=== PATIENT | male | born 1940 | race Caucasian/White ===

== ENCOUNTER 2017-11-20 10:00 | Inpatient (IN) | payer OTHER, MEDICARE ==
[~2017-11-20] VITALS: Ht 172.7 cm; Wt 67.5 kg
[~2017-11-20 10:00] MED LIST: ALLO300T2 PO; ASPI-183 PO; ATOR80TA45 PO; BUPR100T4 PO; CALC1TAB87 PO; CYAN1TAB24 PO; FINA5TAB2 PO; FLUT50SP EACH NARE; LISI40TA PO; MULTTAB67 PO; POTA595T PO; SUCR1TAB PO; VERA120T3 PO; VITA2000 PO
[2017-11-20] MEDS ORDERED: ACETAMINOPHEN 1000 MG/100 ML 100 ML IV ONE (10:21)
[2017-11-20] MEDS ORDERED: GENTAMICIN SULFATE 80 MG/2 ML VIAL ONE (10:28)
[2017-11-20] MEDS ORDERED: VANCOMYCIN 1000 MG/NS 250 ML (for <70 kg) IV SCH ×2 (10:45)
[2017-11-20] MEDS ORDERED: LACTATED RINGER'S 1000 ML IV PRN (10:45)
[2017-11-20] MEDS ORDERED: METOPROLOL TARTRATE 25 MG TAB PO PRN (10:45)
[2017-11-20] MEDS ORDERED: POVIDONE IODINE 5% (ANTISEPSIS KIT) 4 APPLICATIONS EACH NARE PRN (10:45)
[2017-11-20] MEDS ORDERED: CHLORHEXIDINE GLUCONATE 2 % 1 PACK (2 CLOTHS) TOPICAL PRN (10:45)
[2017-11-20] MEDS ORDERED: SODIUM CHLORID 0.9% 500 ML IV PRN (10:45)
[2017-11-20] MEDS ORDERED: CHLORHEXIDINE GLUCONATE 4% SOLN 120 ML BTL TOPICAL SCH (10:45)
[2017-11-20] MEDS ORDERED: LISI40TA PO (11:14)
[2017-11-20] MEDS ORDERED: LISI-515 PO (11:14)
[2017-11-20] MEDS ORDERED: VANCOMYCIN 1 GM/200 ML INJ 200 ML IV ONE (11:39)
[2017-11-20] MEDS ORDERED: ceFAZolin 2 GM PREMIX 50 ML ONE (11:45)
[2017-11-20 11:46] VITALS: PULSE 79
[2017-11-20] MEDS ORDERED: MIDAZOLAM HCL 5 MG/5 ML VIAL ONE ×2 (11:48→12:25)
[2017-11-20] MEDS ORDERED: BUPIVACAINE LIPOSOME PF 1.3% 20 ML VIAL ONE (11:57)
[2017-11-20] MEDS ORDERED: NEOSTIGMINE 5 MG/5 ML SYRINGE IV PUSH ONE (12:00)
[2017-11-20] MEDS ORDERED: ePHEDrine/NS 25 MG/5 ML SYRINGE IV ONE (12:00)
[2017-11-20] MEDS ORDERED: DEXAMETHASONE SOD PHOS 4 MG/ML VIAL IV ONE (12:00)
[2017-11-20] MEDS ORDERED: ROCURONIUM INJ 50 MG/5 ML SYRINGE IV PUSH ONE (12:00)
[2017-11-20] MEDS ORDERED: GLYCOPYRROLATE 1 MG/5 ML SYRINGE IV PUSH ONE (12:00)
[2017-11-20] MEDS ORDERED: ROPIVACAINE PERI-ARTICULAR INJECTION. P-ARTICULR SCH ×5 (12:00)
[2017-11-20] MEDS ORDERED: LIDOCAINE HCL 1% PF 5 ML SYRINGE OTHER ONE (12:00)
[2017-11-20] MEDS ORDERED: LACTATED RINGER'S 1000 ML INJ 1,000 ML IV ONE (12:00)
[2017-11-20] MEDS ORDERED: PHENYLEPH/NS 1000 MCG/10 ML SYR IV ONE (12:00)
[2017-11-20] MEDS ORDERED: PROPOFOL 200 MG/20 ML AMP IV ONE (12:00)
[2017-11-20] MEDS ORDERED: ONDANSETRON HCL 4 MG/2 ML VIAL IV ONE (12:00)
[2017-11-20] MEDS ORDERED: SUGAMMADEX SODIUM 200 MG/2 ML VIAL IV PUSH ONE (12:29)
[2017-11-20] MEDS ORDERED: HYDR-3288 PO (15:07)
[2017-11-20] MEDS ORDERED: DO NOT ADM ANY ANTICOAGULANT DRUGS PRN (15:08)
[2017-11-20] MEDS ORDERED: MIDAZOLAM HCL 2 MG/2 ML VIAL ONE (15:09)
--- NOTE | 2017-11-20 15:10 | HHI.FF ---
Face to Face Verification Diagnosis: (1) Failed total knee arthroplasty Physical Therapy Gait training, Transfer training, bed to chair Knee: Total knee, Protocol: Left, Full weight bearing Right LE Weight Bearing: WB as tolerated Left LE Weight Bearing: WB as tolerated Nursing RN: 3 days/week x 2 weeks Nursing: Dressing changes (clean incision with alcohol and apply dry, sterile dressing ) Additional Instructions Aspirin 325 mg daily for dvt prop I have seen patient Ady Hidalgo on 11/20/17. My clinical findings support the need for the requested home health care services because: Deconditioned w/ increased weakness I certify that my clinical findings support that this patient is homebound because: Post-op weakness Unsteady gait/balance Red Mcduffie MD November 20, 2017 15:10
[2017-11-20] MEDS ORDERED: BEDSIDE COMMODE1 MI1 (15:11)
[2017-11-20] MEDS ORDERED: WALKER WHEELS/F1 MIS (15:11)
[2017-11-20] MEDS ORDERED: ALUMINUM/MAGNESIUM/SIMETH 30 ML CUP PO PRN (15:15)
[2017-11-20] MEDS ORDERED: ACETAMINOPHEN/HYDROcodone 325 MG/7.5 MG TAB PO PRN (15:15)
[2017-11-20] MEDS ORDERED: Post-op Orders (for Pharmacy) XX ONE (15:15)
[2017-11-20] MEDS ORDERED: ZOLPIDEM TARTRATE 5 MG TAB PO PRN (15:15)
[2017-11-20] MEDS ORDERED: MORPHINE SULFATE 8 MG/ML INJ IV PUSH PRN (15:15)
[2017-11-20] MEDS: LACTATED RINGER'S 1000 ML INJ 1,000 ML IV SCH ×2 (15:26→22:16)
--- NOTE | 2017-11-20 15:36 | MP ---
cc: Red Mcduffie MD, Patricia J MD DATE OF OPERATION: 11/20/2017 PREOPERATIVE DIAGNOSES: 1. Left knee painful medial unicondylar arthroplasty, failed tibial component. 2. Osteoarthritis. POSTOPERATIVE DIAGNOSIS: 1. Left knee painful medial unicondylar arthroplasty, failed tibial component. 2. Osteoarthritis. PROCEDURES PERFORMED: Left revisional total knee arthroplasty. SURGEON: Jill Mcduffie MD COMPLICATIONS: Mercedes Hartley PA-C. TOURNIQUET TIME: 73 minutes at 250 mmHg. ANESTHESIA: General, regional adductor canal block, intraarticular block. ESTIMATED BLOOD LOSS: Less than 25 mL. COMPLICATIONS: None. PLAN OF ACTIVITY: As per orders. NOTE: My public relations assistant, Mercedes Hartley PA-C, was present for the entire surgical case. She was medically necessary for the entire case because of the complexity of the case and to facilitate the performance of the procedure. The [employer] at the back table was not of the skill set in this case to manipulate the instruments, e.g. multiple different soft tissue retractors, removal of unicondylar arthroplasty system, trial implants and permanent implants, including bone cement. DESCRIPTION OF PROCEDURE: The patient was brought into the operating room, had satisfactory anesthesia by the Department of Anesthesia. Left lower extremity was prepped and draped in the usual sterile manner. The extremity was exsanguinated by elevation and tourniquet inflated 250 mmHg. Anterior medial exposure to the knee was made. Paramedian capsulotomy was performed. The remaining portion of the medial and lateral meniscus were removed. The remaining portion of the lateral meniscus was removed. The anterior cruciate ligament was removed. Posterior cruciate ligament was preserved. Prepatellar fat pad was surgically excised. The patient was found to have a failed tibial component. The patient did have what appeared to be loosening of the component. Using the [place] revisional total knee arthroplasty system, flexible osteotomes were used to dissect between the bone and the bone cement and the prosthesis on the femoral component and also removal of the tibial component. Using the [employer] total knee arthroplasty system, IM guide was used for the distal femur, a 7-degree valgus cut to accept a 67.5 mm femoral component. Extramedullary guide was used for the tibia to accept a 75-mm tibial component. Appropriate balancing of the knee was performed, both medially and laterally. A trial implant, 10 mm insert was found to be stable and satisfactory, excellent balance in both flexion and extension. The undersurface of the patella was removed to accept a 31 mm patellar prosthesis. All trial components were removed and preparation for cementing was made. The knee was irrigated with copious amounts of sterile saline antibiotic solution. The knee was injected with 100 mL of local anesthesia provided by the Department of Pharmacy. First 2 packages of [place] bone cement was used. First, the tibial component was cemented which was a 75 mm tibial component, followed by the femoral component, which was a 67.5 mm femoral component and a 31 mm, three-pronged patellar prosthesis. A trial plastic insert was used. All excess bone cement was removed. Cement was allowed to harden for 11-1/2 minutes. The trial component was removed and a 10 x 75 tibial component, lipped, was used as the polyethylene plastic with appropriate clipping mechanism. Tourniquet was deflated. The wound itself was dry. All bleeders were coagulated. The wound was irrigated with 4000 mL of sterile antibiotic solution using Waterpik irrigation system. The wound was closed over an 1/8-inch Hemovac drain. The capsule and extensor mechanism were repaired using multiple interrupted #2 Ti-Cron sutures, the subcutaneous layers with 0 Vicryl, 2-0 Vicryl. The skin was approximated with skin heydi. Sterile dressings were applied. The patient tolerated the procedure well and arrived in the Recovery Room in stable and satisfactory condition. MD SHANICE Jauregui/JESSICA , 03:06 PM , 03:35 PM
--- NOTE | 2017-11-20 16:00 | RADRPT ---
EXAM DATE/TIME: 11/20/2017 15:18 CORRECTION Corrected on: November 22, 2017; Corrected Report date [facility] COMPARISON: No previous studies available for comparison. INDICATIONS : Post op left knee. MEDICAL HISTORY : None. SURGICAL HISTORY : None. ENCOUNTER: Initial ACUITY: 1 day PAIN SCORE: Non-responsive. LOCATION: Left knee. FINDINGS: Postsurgical features of left knee arthroplasty. Arthroplasty components are in anatomic alignment. N o significant acute bony fracture. Immediate postsurgical soft tissue features. CONCLUSION: 1. Status post left knee arthroplasty in anatomic alignment without significant acute bony fracture. Olivier Arenas MD on November 20, 2017 at 15:57
[2017-11-20 16:15] VITALS: BP 162/74; PULSE 80; RESP 17; TEMP 97.7; O2SAT 99
[2017-11-20] MEDS: ACETAMINOPHEN/HYDROcodone 325 MG/7.5 MG TAB PO PRN ×2 (16:46→21:53)
[2017-11-20] MEDS: SUCRALFATE 1 GM TAB PO SCH ×2 (16:46→21:48)
[2017-11-20 20:26] VITALS: BP 113/63; PULSE 93; RESP 18; TEMP 97.3; O2SAT 96
[2017-11-20] MEDS ORDERED: ASPIRIN 325 MG TAB PO SCH (21:00)
[2017-11-20] MEDS ORDERED: ALLOPURINOL 300 MG TAB PO SCH (21:00)
[2017-11-20] MEDS ORDERED: ATORVASTATIN 80 MG TAB PO SCH (21:00)
[2017-11-20] MEDS: buPROPion HCL 100 MG TAB PO SCH (21:49)
[2017-11-21 00:43] VITALS: BP 120/64; PULSE 80; RESP 18; TEMP 98.3; O2SAT 97
[2017-11-21 04:49] VITALS: BP 118/59; PULSE 76; RESP 18; TEMP 97.8; O2SAT 99
[2017-11-21 05:58] LABS: HEMATOCRIT 29.3 % (39.0-51.0); HEMOGLOBIN 10.1 GM/DL (13.0-17.0)
--- NOTE | 2017-11-21 07:22 | PD.ORT.PN ---
Subjective Subjective Remarks POD # 1 L Rev TKR No pain;patient wishes to go home No chest pain;no SOB Objective Vitals Vital Signs Date Time Temp Pulse Resp B/P (MAP) Pulse Ox O2 Delivery O2 Flow Rate FiO2 11/21/17 04:49 97.8 76 18 118/59 (78) 99 11/21/17 00:43 98.3 80 18 120/64 (82) 97 11/20/17 22:53 18 11/20/17 20:26 97.3 93 18 113/63 (80) 96 11/20/17 16:15 97.7 80 17 162/74 (103) 99 11/20/17 15:45 97.4 80 18 149/77 (101) 100 Nasal Cannula 2 11/20/17 15:30 81 16 149/82 (104) 100 Nasal Cannula 2 11/20/17 15:15 79 15 148/76 (100) 100 Nasal Cannula 2 11/20/17 15:03 97.0 90 20 154/80 (104) 92 Nasal Cannula 4 11/20/17 12:11 76 20 174/90 (118) 100 11/20/17 11:46 100 Nasal Cannula 2 11/20/17 11:46 79 11/20/17 10:35 98.0 76 20 162/86 (111) 99 I/O 11/20/17 11/20/17 11/20/17 11/21/17 11/21/17 11/21/17 07:00 15:00 23:00 07:00 15:00 23:00 Intake Total 1400 ml 378 ml Output Total 25 ml Balance 1375 ml 378 ml Intake Oral 360 ml IV Total 18 ml Other 1400 ml Output Estimated Blood Loss 25 ml Result Diagram: 11/21/17 0517 Imaging Last 24 hours Impressions Knee X-Ray 11/20/17 1501 Signed Impressions: Service Date/Time: Tuesday, November 21, 2017 03:18 - CONCLUSION: 1. Status post left knee arthroplasty in anatomic alignment without significant acute bony fracture. Olivier Arenas MD Objective Remarks N/V intact No calf tenderness;neg remy's sign Dressings dry Assessment & Plan Assessment and Plan Ortho stable Aspirin 325 mg BID for $ weeks for DVT/PE prophylaxsis Discharge home today C RN/PT Red Mcduffie MD November 21, 2017 07:22
[2017-11-21 08:06] VITALS: BP 135/70; PULSE 84; RESP 17; TEMP 97.4; O2SAT 98
[2017-11-21] MEDS ORDERED: FLUTICASONE PROPIONATE 50 MCG/ACT 16 GM NASAL SPRAY EACH NARE SCH (09:00)
[2017-11-21] MEDS ORDERED: VERAPAMIL HCL 120 MG TAB PO SCH (09:00)
[2017-11-21] MEDS ORDERED: FINASTERIDE 5 MG TAB PO SCH (09:00)
[2017-11-21] MEDS ORDERED: LISINOPRIL 20 MG TAB PO SCH ×2 (09:00)
[2017-11-21] MEDS: buPROPion HCL 100 MG TAB PO SCH (09:45)
[2017-11-21] MEDS: SUCRALFATE 1 GM TAB PO SCH (09:45)
[2017-11-21 12:06] VITALS: BP 139/89; PULSE 88; RESP 16; TEMP 98; O2SAT 97
[2017-11-21] MEDS ORDERED: ASPI-183 PO (12:16)
[2017-11-21] MEDS: ACETAMINOPHEN/HYDROcodone 325 MG/7.5 MG TAB PO PRN (12:47)
== END 2017-11-21 14:12 | disposition home health service (06) | DRG 468 ==
LOC: HSDI 10:00 → N06B 16:31
PROVIDERS: ADMIT Orthopaedic Surgery Orthopaedic Surgery of the Spine; ATTEND Orthopaedic Surgery Orthopaedic Surgery of the Spine
PROC: 0SRD0J9 Replacement of Left Knee Joint with Synthetic Substitute, Cemented, Open Approach (ICD-10-PCS; 2017-11-20)
PROC: 3E0T3BZ Introduction of Anesthetic Agent into Peripheral Nerves and Plexi, Percutaneous Approach (ICD-10-PCS; 2017-11-20)
PROC: 0SPD0JZ Removal of Synthetic Substitute from Left Knee Joint, Open Approach (ICD-10-PCS; principal; 2017-11-20 12:45)
DX: T84.033A Mechanical loosening of internal left knee prosthetic joint, initial encounter (principal); I48.91 Unspecified atrial fibrillation; I10 Essential (primary) hypertension; M17.12 Unilateral primary osteoarthritis, left knee; K21.9 Gastro-esophageal reflux disease without esophagitis; N40.0 Benign prostatic hyperplasia without lower urinary tract symptoms; G47.30 Sleep apnea, unspecified; M19.90 Unspecified osteoarthritis, unspecified site; J45.909 Unspecified asthma, uncomplicated; M83.9 Adult osteomalacia, unspecified; Z87.891 Personal history of nicotine dependence
CPT/HCPCS: 73560; 85014; 85018; 86850; 86900; 86901; 86920; 94150; C1776; C9290; J0131; J0690; J0735; J1100; J1580; J1885; J2250; J2370; J2405; J2710; J2795; J3010; J3370; J7120